=== PATIENT | male | born 1990 | race Caucasian/White ===

== ENCOUNTER 2017-05-14 20:27 | Inpatient (IN) | payer BC, OTHER ==
[2017-05-14] MEDS ORDERED: Ondansetron ODT 4 MG TAB SL PRN (22:57)
[2017-05-14] MEDS ORDERED: Acetaminophen 325 MG TAB PO PRN (22:57)
[2017-05-14] MEDS ORDERED: Sodium Chloride 0.9% 1,000 ML IV SCH (22:57)
[2017-05-14] MEDS ORDERED: Ondansetron HCl/PF 4 MG/2 ML Vial IVP PRN (22:57)
[2017-05-14] MEDS ORDERED: Clindamycin/D5W 600 MG in Premix Bag 1 BAG IVPB SCH (23:59)
[2017-05-15] MEDS ORDERED: Ondansetron HCl/PF 4 MG/2 ML Vial IVP PRN ×2 (02:00→23:30)
[2017-05-15] MEDS: Sodium Chloride 0.9% 1,000 ML IV SCH ×2 (02:20→11:55)
[2017-05-15] MEDS: Morphine 5 MG/ML SYRINGE SLOW IVP PRN ×2 (02:34→10:17)
[2017-05-15] MEDS: Dexamethasone 10 MG/ML VIAL SLOW IVP SCH ×2 (02:39→10:16)
--- NOTE | 2017-05-15 03:47 | HP ---
DATE OF ADMISSION: 05/14/2017 TIME OF SERVICE: 0140 hours. PRIMARY CARE PHYSICIAN: None. CHIEF COMPLAINT: Throat pain. HISTORY OF PRESENT ILLNESS: Mr. Piña is a 26-year-old white male with no past medical history, marilyn lowery presents on transfer from the [facility] for pharyngeal abscess. The patient has a known periodontic abscess and is supposed to have wisdom teeth extracted on 018; however, over the last 3-4 days, had increasing pain to the left neck, had difficulty swallowing , and was very uncomfortable. He presented to the [facility] for evaluation, where CT scan showed a 3.5 cm abscess in the left larynx. He subsequently was referred to the ENT doctors percussion instrument tuner, who do not deal with dental abscesses and was transferred here for dental care. Patient denies any fevers or chills , no nausea, vomiting, diarrhea, constipation. He has had some facial swelling and some pain with sw allowing. At the outside hospital, they gave clindamycin 900 mg, 20 mg of Decadron, and was transferred here. Labs there showed a white count of 18,600, but otherwise normal. On arrival here, his vital signs have been stable. We were called for admission. Dr. Almaguer was c sarahi and will see the patient in the morning and likely taken to surgery for dental extraction. PAST MEDICAL HISTORY: None. PAST SURGICAL HISTORY: None. MEDICATIONS: None. ALLERGIES: None. FAMILY HISTORY: None. SOCIAL HISTORY: Negative for IV drug use. He had some past tobacco and occasional alcohol use. 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 REVIEW OF SYSTEMS: A 10-point review of systems was performed and negative for all systems except as stated per HPI. PHYSICAL EXAMINATION: VITAL SIGNS: Temperature 98.9, pulse of 100, blood pressure 131/98, respiratory rate 18, sat 97% on room air. GENERAL: He is awake. He is alert. He is oriented x2, well-developed, well-nourished, white male marilyn lowery appears to be in no acute distress. HEENT: Normocephalic, atraumatic. Pupils equal, round, react to light bilaterally, mucous membranes are moist. He has a large amount of swelling on the left posterior pharynx. He has uvula deviation to the right. There is a significant edema and actually erythema to the left posterior throat. NECK: Supple. There is lymphadenopathy present in the anterior and posterior chain. He has no thyr omegaly. LUNGS: Clear to auscultation bilaterally. He has no wheezes. No rales, no rhonchi, no stridor. He has good air movement with symmetrical chest excursion. No prolonged expiratory phase. CARDIOVASCULAR: Normal S1, S2. No S3, S4. No audible murmurs. ABDOMEN: Soft. It is nontender, nondistended. He has normoactive bowel sounds present in all 4 chen [address]ants. There is no rebound, rigidity, or guarding. EXTREMITIES: No cyanosis, no clubbing, no edema. He has got 2+ peripheral pulse in the dorsalis ped is and posterior tibial arteries bilaterally. SKIN: Warm, moist, and well perfused. There are no rashes or lesions. NEUROLOGIC: Cranial nerves II through XII are grossly intact. He has no focal neurologic deficits, 5/5 strength in all 4 extremities. Normal speech pattern. There is no focal deficits. MUSCULOSKELETAL: Normal to inspection. He has no joint inflammation or effusions. LABORATORY DATA: From the outside hospital, sodium 135, potassium 3.8, chloride 94, bicarbonate 33, BUN 9, creatinine 0.7, glucose 106, and calcium 9.9. CBC showed a white count of 18.6. He had 84% granulocytes, but no bands. Hemoglobin 13.8, hematocri t of 40.2, platelet count is 251,000. CT scan showed 3.5 cm abscess in the left pharynx. He has lymphadenopathy present. There is no gas. ASSESSMENT AND PLAN: 1. Left laryngeal abscess/pharyngeal abscess. It appears to be odontogenic source. Clindamycin 600 mg q.6 per dental request, we will keep him on Decadron 10 mg IV q.8 hours. He is n.p.o. Morphine for pain. 2. Sepsis syndrome. The patient does meet sepsis criteria with tachycardia, increased white blood c ell count, and bacterial infection. We will continue to follow. 3. Odontogenic/dental abscess. The patient to have his wisdom tooth extracted likely tomorrow by Dr Milad Almaguer.
[2017-05-15] MEDS ORDERED: Clindamycin/D5W 300 MG/50 ML BAG IVPB SCH (06:00)
[2017-05-15] MEDS: Clindamycin/D5W 600 MG in Premix Bag 1 BAG IVPB SCH ×3 (06:09→18:02)
[2017-05-15] MEDS: Famotidine/PF 20 mg/2ml Vial SLOW IVP SCH (10:16)
[2017-05-15] MEDS ORDERED: Ondansetron HCl/PF 4 MG/2 ML Vial ONE (12:27)
[2017-05-15] MEDS ORDERED: Lidocaine 1% PF 5 ML VIAL ONE (12:27)
[2017-05-15] MEDS ORDERED: Dexamethasone 20 MG/5 ML VIAL ONE (12:27)
[2017-05-15] MEDS ORDERED: Glycopyrrolate 0.2 MG/ML 5 ML SYRINGE ONE (12:27)
[2017-05-15] MEDS ORDERED: PROPOFOL 200 MG/20 ML VIAL ONE (12:27)
[2017-05-15] MEDS ORDERED: Dexamethasone 4 mg/ml Vial ONE (19:16)
--- NOTE | 2017-05-15 20:31 | CON ---
DATE OF CONSULTATION: 05/15/2017 CONSULTING PHYSICIAN: Dr. Betancur in the Emergency Department. HISTORY OF PRESENT ILLNESS: This is a 26-year-old male with no significant past medical hi story who presented to [facility] from his home in [place] due to a neck absce ss, which he felt was associated with a longstanding pain and problems with tooth #17 region. Maria E carmona was scheduled to have tooth #17, now with his dentist in hospital today, but the infection and situ ation worsened over the weekend and presented to the emergency department as previously discussed. Elodia matt denies any dyspnea, odynophagia, or dysphagia, but he does report significant swelling in the left posterior neck and perimandibular region. Patient also reports trismus and pain in the tooth #1 7 region. The patient was evaluated by Dr. Haines with ENT at [facility] due to concerns for peritonsillar abscess. However, on evaluation, it appeared to Dr. Haines that the infection was odon togenic in origin and he is transferred to [facility] for evaluation and management by us. PAST MEDICAL HISTORY: Negative. ALLERGIES: No known drug allergies. 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 SOCIAL HISTORY: Denies smoking. Positive for occasional alcohol and denies drugs. REVIEW OF SYSTEMS: No significant findings other than those enumerated in the history of present ill ness. PHYSICAL EXAMINATION: VITAL SIGNS: Blood pressure 131/98, pulse 100, respiration rate 18, 97% oxygen saturation on room ai r, temperature 98.9. GENERAL: Awake, alert, oriented x3. HEAD AND NECK: Patient has significant swelling over the left posterior perimandibular region and ob vious difficulty with his opening approximately 10 mm or so. Due to his trismus it is difficult to g et a full evaluation of the intraoral exam. The infection appears posterior in the tooth #17 region. The submandibular spaces bilaterally are relatively soft without significant signs of involvement t hat in those regions. RESPIRATORY: Patient is breathing without difficulty and has no signs of difficulty with tolerating his secretions or swallowing. LABORATORY STUDIES: Showed a white blood cell count of 18.6 at the outside hospital. Hemoglobin 13. 8 and platelets of [address]. [address] scan of the neck from outside hospital shows a large multiloculated abscess involving the left pte rygomandibular space as well as left lateral pharyngeal space with deviation, but no nourishment of t he airway. ASSESSMENT: Left pterygomandibular abscess and lateral pharyngeal abscess, which appears to be assoc iated with infected tooth #17. PLAN: 1. Patient will be taken to the operating room today for transfascial and transoral incision and guero inage of the left pterygomandibular and lateral pharyngeal space abscesses and removal of tooth #17 a nd any other involved teeth. 2. Patient should be continued on IV antibiotics in conjunction with the Internal Medicine team. Sae christianson should also begin Peridex mouth rinses b.i.d. 3. Patient will be kept n.p.o. until the operating room this evening.
[2017-05-15] MEDS ORDERED: Chlorhexidine Gluconate 15 ML UDCUP SSP ONE (20:50)
[2017-05-15] MEDS ORDERED: Lidocaine 2% w/Epinephrine 1:200K 20 ML VIAL ONE (20:50)
[2017-05-15] MEDS ORDERED: Bacitracin Zinc Ointment 30 gm TUBE ONE (20:59)
[2017-05-15] MEDS ORDERED: Fentanyl 100 MCG/2 ML VIAL ONE (21:03)
[2017-05-15] MEDS ORDERED: HYDROmorphone 0.5 MG/0.5 ML SYRINGE ONE (21:03)
[2017-05-15] MEDS ORDERED: Sodium Chloride 0.9% 10 ML ONE (21:03)
[2017-05-15] MEDS ORDERED: Chlorhexidine Gluconate 15 ML UDCUP SSP SCH (23:15)
[2017-05-15] MEDS ORDERED: Promethazine HCl 25 MG/ML VIAL SLOW IVP PRN (23:30)
[2017-05-15] MEDS ORDERED: Promethazine HCl 25 MG/ML VIAL IM PRN (23:30)
[2017-05-16] MEDS: Famotidine/PF 20 mg/2ml Vial SLOW IVP SCH ×3 (00:20→21:17)
[2017-05-16] MEDS: Dexamethasone 10 MG/ML VIAL SLOW IVP SCH ×4 (00:20→17:41)
[2017-05-16] MEDS: Morphine 5 MG/ML SYRINGE SLOW IVP PRN ×2 (00:29→05:39)
[2017-05-16] MEDS: Clindamycin/D5W 600 MG in Premix Bag 1 BAG IVPB SCH ×4 (00:33→17:41)
[2017-05-16] MEDS: Sodium Chloride 0.9% 1,000 ML IV SCH ×3 (08:12→17:44)
[2017-05-16] MEDS: Chlorhexidine Gluconate 15 ML UDCUP SSP SCH ×2 (10:42→21:21)
[2017-05-16 11:41] VITALS: BMI 25.4
--- NOTE | 2017-05-16 19:39 | PDOC.PN ---
- Subjective Encounter Start Date: 05/16/17 Encounter Start Time: 17:00 Subjective: f/u for pharyngeal abscess with I&D and packing placed with arslan -: drain POD #1. Feeling better overall, less L-sided facial swelling and pain -: Tolerating soft diet. Currently tx with Clindamycin. - Objective Resuscitation Status: Resuscitation Status FULL:Full Resuscitation MAR Reviewed: Yes Vital Signs & Weight: Vital Signs (12 hours) Temp Pulse Resp BP Pulse Ox 05/16/17 16:57 97.8 F 67 18 130/76 05/16/17 12:59 97.8 F 80 16 123/76 05/16/17 08:01 98.4 F 53 L 18 125/83 96 05/16/17 08:00 98.4 F 53 L 18 Weight Admit Weight 148 lb 4.8 oz Weight 148 lb 4.8 oz I&O: 05/15/17 05/16/17 05/17/17 06:59 06:59 06:59 Intake Total 081 953 7173 Output Total 475 750 Balance 031 04 0728 Phys Exam - Physical Examination Constitutional: NAD L facial edema of mandible HEENT: PERRLA Neck: no JVD, supple Respiratory: no wheezing, clear to auscultation bilateral Cardiovascular: RRR Gastrointestinal: soft, non-tender, no distention, positive bowel sounds Musculoskeletal: pulses present, edema present Neurological: normal sensation, moves all 4 limbs Psychiatric: A&O x 3 Skin: normal turgor, cap refill <2 seconds Dx/Plan (1) Pharyngeal abscess Code(s): J39.1 - OTHER ABSCESS OF PHARYNX Status: Acute (2) Status post wisdom tooth extraction Code(s): Z98.818 - OTHER DENTAL PROCEDURE STATUS Status: Acute - Plan continue antibiotics, out of bed/ambulate, DVT proph w/SCDs Stable overall -: Continue Clindamycin IV another 24h -: Decadron d/c'd -: Pain control with Morphine Sulfate IV -: Peridex mouthwash * Likely home in am
[2017-05-16] MEDS ORDERED: Sodium Chloride 0.9% 10 ML ONE (20:59)
[2017-05-17] MEDS: Clindamycin/D5W 600 MG in Premix Bag 1 BAG IVPB SCH ×4 (00:25→18:02)
[2017-05-17 06:03] LABS: Band 11 % (5-11); Hemoglobin 13.3 g/dL (14.0-18.0); Lymphocytes 23 % (21-51); MDiff Complete? YES; Mean Corpuscular HGB CONC 32.6 g/dL (32.0-36.0); Mean Corpuscular Hemoglobin 30.9 pg (27.0-31.0); Mean Platelet Volume 8.7 fL (7.4-10.4); Metamyelocyte 4 % (0-0); Monocytes 7 % (0-10); Myelocyte 1 % (0-0); Neutrophil 54 % (42-75); PLT Morphology Comment Appears Adequate; Platelet Count 362 thou/uL (130-400); RBC Distribution Width 11.8 % (11.5-14.5); White Blood Cell (WBC) Count 14.4 thou/uL (4.8-10.8)
[2017-05-17] MEDS ORDERED: Clindamycin/D5W 600 mg/50 ml Premix Bag ONE (06:24)
[2017-05-17] MEDS: Sodium Chloride 0.9% 1,000 ML IV SCH ×2 (06:28→17:51)
[2017-05-17] MEDS: Famotidine/PF 20 mg/2ml Vial SLOW IVP SCH ×2 (09:25→21:47)
[2017-05-17] MEDS: Chlorhexidine Gluconate 15 ML UDCUP SSP SCH ×2 (09:26→21:47)
--- NOTE | 2017-05-17 12:05 | PQF ---
CLINICAL DOCUMENTATION IMPROVEMENT CLARIFICATION FORM: ICD-10 Updated PLEASE DO AN ADDENDUM TO THE PROGRESS NOTE WITH ANY DOCUMENTATION UPDATES OR ADDITIONS AND CARRY THROUGH TO DC SUMMARY. THANK YOU. DATE: 05/17/17 ATTN: DR. TORRES Please exercise your independent, professional judgment in responding to the clarification form. Clinical indicators are provided on the bottom of this form for your review Please check appropriate box(s) to clarify if the following diagnosis has been ruled in our ruled out: SEPSIS [ ] Ruled in diagnosis [ ] Continue to treat [ ] Resolved [ x ] Ruled out diagnosis [ ] Cannot rule out diagnosis [ ] Other diagnosis [ ] Unable to determine In addition, please specify: Present on Admission (POA): [ ] Yes [ ] No [ x ] Unable to determine For continuity of documentation, please document condition throughout progress notes and discharge summary. Thank You. CLINICAL INDICATORS - SIGNS / SYMPTOMS / LABS H&P 05/15: "SEPSIS SYNDROME. 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 All Rights Reserved [email or web address] Office: [phone] [facility]
--- NOTE | 2017-05-17 12:38 | DIS ---
DATE OF ADMISSION: 05/14/2017 DATE OF DISCHARGE: 05/17/2017 DISCHARGE DIAGNOSES: 1. Status post pharyngeal abscess with incision and drainage. 2. Status post wisdom tooth extraction. CONSULTATIONS: Dr. Almaguer with Dental Surgery Service. PERTINENT LAB AND X-RAY FINDINGS: CBC showed a white blood cell count 14.4, hemoglobin 13, hematocri t 41, and platelet count 362. Oral cultures dated 05/15/2017 showed polymicrobial sample with gram n egative and gram positive rods as well as gram positive cocci. CT scan of the head and neck dated showed 3.5 cm abscess in the left larynx region. HOSPITAL COURSE: Patient was admitted to the medical floor, presenting with abscess in the left phar ynx region with associated lymphadenopathy. The patient was evaluated by the General Dentistry Servi ce after placement on IV clindamycin and Decadron. The patient underwent evaluation with eventual in cision and drainage of the abscess with extraction of tooth #17. The patient underwent packing place d and Bunny drain and continued on IV clindamycin through the remainder of the hospital course. Th e patient rapidly clinically improved and was able to tolerate regular oral intake with decreased kimberlee n and edema of the left facial region. The patient remained afebrile and overall clinically stable t hrough the remainder of the hospital course. Current recommendations are to continue clindamycin on an outpatient basis after discharge. Overall, patient remained clinically stable and ready for disch arge 05/17/2017. DISCHARGE MEDICATIONS: 1. Clindamycin 450 mg 1 tablet p.o. q.i.d. x10 days. 2. Chlorhexidine gluconate 15 mL swish and spit b.i.d. 3. [place] 7.5/325 mg 1 tablet p.o. q.6 hours p.r.n. pain. FOLLOWUP: The patient may follow up with his primary care provider, Dr. Genesis Love in [place], [place] within 7 days. The patient will follow up with Dr. Wilfred Almaguer and to call his office for appointment time and date. CONDITION ON DISCHARGE: Stable. ACTIVITY: Ad raciel. DIET: Mechanical soft regular diet. CODE STATUS: FULL. DISPOSITION: Home on 05/17/2017.
[2017-05-17] MEDS ORDERED: Sodium Chloride 0.9% 10 ML ONE (17:08)
[2017-05-18] MEDS: Sodium Chloride 0.9% 1,000 ML IV SCH (00:17)
[2017-05-18] MEDS: Clindamycin/D5W 600 MG in Premix Bag 1 BAG IVPB SCH ×4 (00:29→17:09)
[2017-05-18 06:14] LABS: #Basophils 0.1 thou/uL (0.0-0.2); #Eosinphils 0.1 thou/uL (0.0-0.7); #Lymphocytes 3.5 thou/uL (1.20-3.40); #Monocytes 1.1 thou/uL (0.11-0.59); %Basophils 0.4 % (0.0-1.0); %Eosinophils 1.2 % (0.0-10.0); %Lymphocytes 29.6 % (21.0-51.0); %Monocytes 9.2 % (0.0-10.0); %Neutrophils 59.5 % (42.0-75.0); Hemoglobin 13.9 g/dL (14.0-18.0); Mean Corpuscular HGB CONC 32.4 g/dL (32.0-36.0); Mean Corpuscular Hemoglobin 30.2 pg (27.0-31.0); Mean Corpuscular Volume 93.2 fl (80.0-94.0); Mean Platelet Volume 8.3 fL (7.4-10.4); Platelet Count 378 thou/uL (130-400); RBC Distribution Width 11.7 % (11.5-14.5); Red Blood Cell (RBC) Count 4.61 mill/uL (4.70-6.10); White Blood Cell (WBC) Count 11.7 thou/uL (4.8-10.8)
[2017-05-18] MEDS: Chlorhexidine Gluconate 15 ML UDCUP SSP SCH (08:36)
[2017-05-18] MEDS: Famotidine/PF 20 mg/2ml Vial SLOW IVP SCH (08:36)
[2017-05-18 18:00] VITALS: BP 125/88; TEMP 99.2
[2017-05-19 10:20] LABS: Fungus Stain Final report (.)
[2017-05-19 10:20] LABS: Fungus Stain Final report (.)
--- NOTE | 2017-05-19 11:51 | OP ---
DATE OF OPERATION: 05/15/2017 PREOPERATIVE DIAGNOSES: 1. Left lateral pharyngeal space and pterygomandibular space abscesses. 2. Infected teeth 16 and 17. POSTOPERATIVE DIAGNOSES: 1. Left lateral pharyngeal space abscess and left pterygomandibular space abscess. 2. Infected teeth 16 and 17. PROCEDURES PERFORMED: 1. Transoral incision and drainage of left lateral pharyngeal and pterygomandibular space abscesses. 2. Removal of teeth 16 and 17. INDICATIONS: This is a 26-year-old male who presented to an outside hospital with what was initially thought to be a peritonsillar abscess. On evaluation by an outside ear, nose and throat surgeon and by radiologist of CT scan that decision was that this was an odontogenic infection, most likely due to tooth #17. The patient has a history of symptoms with 05/20/2017 and was scheduled to get that to ot out at his dentist's office the day of this surgery; however, over the weekend the situation esca lated and the patient began having significant swelling and increasing discomfort. The patient was t ransferred to our hospital for higher level of care and on my evaluation, the patient does have a sig nificant fluid collection which is most likely an abscess involving the left lateral pharyngeal and p terygomandibular space regions along with impacted malposed teeth #16 and 17 which both appear to be contributing factors to the infection. The patient was brought to the operating room at this time fo r treatment of these conditions. SURGEON: Wilfred Almaguer DDS, M.D. DESCRIPTION OF OPERATION: The patient was identified in the preoperative holding area and all questi ons were answered. The patient was transferred to the operating room, transferred to the operating r oom table in supine position. He was subsequently intubated via nasoendotracheal route by the Anesth esia Service after initiation of general anesthetic. A surgical timeout was performed at this time. The patient was prepped and draped off in a sterile manner as is usual for this case. Attention was turned intraorally. A throat pack was placed after suctioning the oral cavity and orop harynx. The mouth was then prepped with Peridex oral rinse and toothbrush. Local anesthetic was del ivered to the left perimandibular region and an incision was made sulcularly around tooth #17 and 18 region with a distal buccal releasing incision from the tooth #17 region up to the external oblique r idge and ascending ramus region. A full thickness mucoperiosteal flap was then raised and attention was turned towards removal of tooth #17. Tooth #17 was elevated sectioned with a bur and removed wit h elevator subsequently. The tooth had obvious signs of pericoronitis-type changes in the mucosa martin t was partially covering the tooth. There was no additional pus received on removal of the tooth and attention was turned towards a subperiosteal lingual dissection towards the pterygomandibular region . This dissection continued back towards the ramus and down towards the inferior border region to ex pose as much as space possible and there was no significant pus return. A hemostat was then used to gently dissect in blunt manner out into the left lateral pharyngeal space through this already develo ped lingual flap. Not long after dissecting towards this direction, significant large foul purulence was obtained from the left lateral pharyngeal space region. Culture swabs were taken of this draina ge and gentle blunt dissection continued to open all of the abscess cavities. It should be noted martin t there was significant for continual drainage of purulence for quite some time during this process. After the abscess cavity had been obviously decompressed to significant extent, a CHER drain was advan krystyna into the abscess cavity and copious irrigation ensued with bacitracin-infused normal saline. At this time, attention was turned to tooth #16, which had obvious signs of buccal malposition and traum atic lesions to the buccal mucosa in portions of the area that the abscess had been in. Tooth #16 wa s elevated and removed with forceps and the socket was curetted and irrigated copiously. At this mika e, there was no further fluid collection was noted and all of the abscess had been decompressed. Att ention was turned back towards further irrigation with the bacitracin-infused normal saline both into the left lateral pharyngeal space and also into the more proper left pterygomandibular space and helio n some into the left submandibular space via the lingual flap. It was determined that based on the l ocation of the abscess in the clinical presentation, extraoral transcervical incision was not necessa ry. A 1/4-inch [place] was doubled over on itself and introduced into the left lateral pharyngeal sp levar abscess region and this was sewn to the intraoral mucosa using a 4-0 chromic gut suture. Another 1/4-inch [place] was advanced into the left pterygomandibular space submandibular space region and s utured to the oral mucosa with 4-0 chromic gut suture as well. The remainder of the oral wounds were closed using 4-0 chromic gut suture in the area as indicated; however, the tooth #17 socket was left wide open. The oral cavity was irrigated and suctioned free of debris and throat pack was removed. The oropharynx was suctioned and a Kerlix gauze pressure pack was placed over the left surgical woun ds. An oral airway was placed by the Anesthesia Service. The patient was turned over to Anesthesia Service for emergence and extubation which ensued without complication. INTRAVENOUS FLUIDS: Please see the anesthetic record for full details. ESTIMATED BLOOD LOSS: 10 mL. URINE OUTPUT: None. FINDINGS: Large, foul purulence from the left lateral pharyngeal space and pterygomandibular space r egions, infected teeth 16 and 17. Impacted tooth #17 as well. COMPLICATIONS: None. SPECIMENS: Purulence from the left lateral pharyngeal space. DRAINS: 1/4-inch [place] drains to the left lateral pharyngeal space and left pterygomandibular spac e. IMPLANTS: None. DISPOSITION: The patient tolerated the procedure well and was transferred to the recovery room in go od condition.
[2017-06-15 13:20] LABS: Fungus Culture Final report (.)
[2017-06-15 13:20] LABS: Fungus Culture Final report (.)
== END 2017-05-18 18:30 | disposition home or self-care (01) | DRG 133 ==
LOC: ERS 20:27 → 3SE 22:18 → OBSVTOIN 22:18
PROVIDERS: ADMIT Internal Medicine Infectious Disease; ATTEND Internal Medicine Infectious Disease
PROC: 0CDXXZ0 Extraction of Lower Tooth, Single, External Approach (ICD-10-PCS; principal; 2017-05-15)
PROC: 0C9 Mouth and Throat, Drainage (ICD-10-PCS; 2017-05-15)
PROC: 0CDWXZ0 Extraction of Upper Tooth, Single, External Approach (ICD-10-PCS; 2017-05-15)
DX: K04.7 Periapical abscess without sinus (principal); J39.1 Other abscess of pharynx
CPT/HCPCS: 36415; 85007; 85025; 85027; 87070; 87102; 87205; 87206; 96360; 96361; J2270; A4216; J1100; J1170; J2001; J2405; J2704; J3010; J3490; Q0162; S0028